=== PATIENT | female | born 1985 | race American Indian/Alaskan Native ===

== ENCOUNTER 2016-11-22 16:50 | Emergency (ER) | payer SELFPAY ==
[2016-11-22 17:53] VITALS: BP 156/96
[2016-11-22] MEDS ORDERED: MOTRIN PO ONE (19:07)
[2016-11-22] MEDS ORDERED: FLEXERIL PO ONE (19:07)
[2016-11-22] MEDS ORDERED: NORCO 5/325 PO ONE (19:07)
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
== END 2016-11-22 20:31 | disposition home or self-care (01) ==
LOC: ED 16:50
DX: M54.5 Low back pain (principal)
CPT/HCPCS: 99282